=== PATIENT | female | born 1985 | race Caucasian/White ===

== ENCOUNTER 2016-08-13 00:30 | Observation (INO) ==
[2016-08-13] MEDS ORDERED: Ondansetron 4 MG/2 ML VIAL IVP PRN ×2 (01:37→16:21)
[2016-08-13] MEDS ORDERED: Ringers Solution, Lactated 1,000 ML IVC SCH ×3 (01:45→16:21)
--- NOTE | 2016-08-13 01:55 | General Surg History&Physical ---
Date of Encounter: 08/13/16 Time of Encounter: 01:30 History of Present Illness Chief complaint: Acute right lower quadrant abdominal pain, acute appendicitis HPI: Ms. Meléndez is a 30 year old morbidly obese patient transferred from [facility] for further evaluation and treatment of right lower quadrant abdominal pain with radiologic evidence of acute appendicitis. Patient indicates symptoms started approximately 24 hours ago. She describes severe pain with mild nausea but no emesis. White count was 17,000. CT of the abdomen and pelvis showed cholelithiasis without evidence of acute cholecystitis; the appendix is dilated measuring up to 1.1 cm with mild wall thickening and adjacent inflammatory changes consistent with acute appendicitis. No signs or symptoms of perforation were identified. Past medical history: Morbid obesity, depression; vitamin D deficiency Surgical history: None described Allergies: No known drug allergies Medications: Calcium carbonate 500 mg by mouth daily cholecalciferol (vitamin D3) 1000 units by mouth daily Fluoxetine 40 mg by mouth daily Norgestimate ethinyl estradiol (sprintec) 1 tablet daily Sennosides 8.6 mg by mouth daily Social history: Patient is G2, P2; patient has never smoked; she admits to weekend alcohol, she denies any illicit drug use Physical examination: Morbidly obese, age-appropriate woman, resting comfortably in her hospital bed. 1.7 m tall, 130.5 kg, BMI 45.1; afebrile at 99; pulse 101-109, respirations 14-20, blood pressure 123/82. Skin: Warm without obvious jaundice Lungs: Clear to auscultation, no obvious abdominal pain with deep inspiration Cardiac: Rapid rate but no discernible murmurs Abdomen: Morbidly obese, with diffuse tenderness. No obvious rebound no detected intra-abdominal masses but her exam is limited by her body habitus. Hypoactive bowel sounds. The radiologist interpreting the recent CT describes the appendix as arising and extending superiorly in the midline. This is consistent with diffuse tenderness and caliber on my exam. Extremities: No obvious clubbing cyanosis or edema. Laboratories: White count 17.0; hemoglobin 14.7, hematocrit 43.2. Platelet count 301,000. Neutrophils elevated at 13.1% Electrolytes, BUN, creatinine within normal limits. Total bilirubin borderline at 1.3, other LFTs within normal limits. Urinalysis notable for the urine being slightly cloudy with a pH of 6.5, specific gravity 1.010. Trace leukocyte esterase; 0-3 red cells, 0-3 white cells per high-powered field Urine test negative Impression: 30-year-old female transferred to [facility] after presenting to the [facility] with new onset right lower quadrant abdominal pain. Clinical findings are consistent with acute appendicitis for which the patient has been transferred to [facility]. Surgical options include laparoscopic appendectomy each eye have recommended. The patient, asked to be seen by Dr Rhoades. Per the patient's request, [facility]/Dr Rhoades will be notified later this morning with the patient's care transferred to that service. Until that transfer can be arranged; the patient be kept NPO, IV antibiotics will be initiated and pain will be controlled with IV Dilaudid. Any nausea vomiting will be treated symptomatically. Past Med Surg Social Fam HX - Past Medical History Medical history: no medical history Psychiatric history: depression - Social History Smoking Status: Never smoker Smokeless Tobacco Status: No Alcohol use: occasionally Drug use: none - Family History Mother Living Status: Still Living Hx Family Cardiac Disorders: Yes (HLD) Hx Family Respiratory Disorders: No Hx Family Cancer: No Hx Family GI Disorders: Yes (Hernias) Hx Family Genitourinary Disorders: No Hx Family Endocrine Disorder: Yes (DM) Hx Family Musculoskeletal Disorders: No Hx Family Neuromuscular Disorders: No Hx Family Neurologic Disorders: No Hx Family HEENT Disorders: No Hx Family Autoimmune Disorders: No Hx Family Reproductive Disorders: No Hx Family Psychosocial Disorders: Yes Hx Family Medical Disorders: No Father Living Status: Still Living Hx Family Cardiac Disorders: No Hx Family Respiratory Disorders: No Hx Family Cancer: No Hx Family GI Disorders: No Hx Family Genitourinary Disorders: No Hx Family Endocrine Disorder: No Hx Family Musculoskeletal Disorders: No Hx Family Neuromuscular Disorders: No Hx Family Neurologic Disorders: No Hx Family HEENT Disorders: No Hx Family Autoimmune Disorders: No Hx Family Reproductive Disorders: No Hx Family Psychosocial Disorders: No Hx Family Medical Disorders: No Medications and Allergies Calcium Carbonate [Calcium] 500 mg PO DAILY 08/12/16 [History] Cholecalciferol (D-3) [Vitamin D] 1,000 unit PO DAILY 08/12/16 [History] FLUoxetine HCl [Fluoxetine HCl] 40 mg PO DAILY 08/12/16 [History] Norgestimate-Ethinyl Estradiol [Sprintec 28 Day Tablet] 1 each PO DAILY [History] Sennosides [Senokot] 8.6 mg PO DAILY 08/12/16 [History] Allergies No Known Allergies Allergy (Verified 08/12/16 21:11) Review of Systems All systems PM: A 10-system review of systems was performed and is negative for pertinent findings except as documented above in the HPI. General Surgery Exam Initial Vital Signs Temp Pulse Resp BP Pulse Ox 99 F 101 14 123/82 97 08/13/16 01:21 08/13/16 01:21 08/13/16 01:21 08/13/16 01:21 08/13/16 01:21 Results - Labs All other labs normal.
[2016-08-13] MEDS: Piperacillin/Tazobactam 3.375 GM in D5% in Water (Mini-Bag+) 100 ML IVPB SCH ×2 (02:18→10:10)
[2016-08-13] MEDS: *HR* HYDROmorphone (PF) 1 MG/ML SYRINGE IVP PRN ×4 (02:18→15:40)
[2016-08-13] MEDS ORDERED: FLUoxetine 20 MG CAPSULE PO SCH (09:00)
--- NOTE | 2016-08-13 10:06 | Event Note ---
Date of Encounter: 08/13/16 Time of Encounter: 09:30 Patient was a transfer from [facility] with acute appendicitis. The patient has been evaluated by Dr. Hensley and history and physical has been complete. The patient has requested to have her surgery completed by Dr. Rhoades after being seen by Dr. Hensley. Dr. Rhoades was notified of the request this morning. The patient has been seen and evaluated by myself this morning. I am in agreement with the assessment and plan as outlined in the history and physical. The risks, benefits, alternatives and expected outcomes have been reviewed with the patient and she is in agreement to proceed to the operating room for a laparoscopic appendectomy with Dr. Rhoades in the next 24 hours.
[2016-08-13] MEDS ORDERED: Lidocaine -MPF 4% 5 ML AMPUL ONE (13:56)
[2016-08-13] MEDS ORDERED: Dexamethasone 4 MG/ML VIAL ONE (13:57)
[2016-08-13] MEDS ORDERED: *HR* Rocuronium Bromide 50 MG/5 ML VIAL ONE (13:57)
[2016-08-13] MEDS ORDERED: *HR* FentaNYL (PF) 100 MCG/2 ML VIAL ONE ×2 (13:57→14:46)
[2016-08-13] MEDS ORDERED: Ondansetron 4 MG/2 ML VIAL ONE (13:57)
[2016-08-13] MEDS ORDERED: *HR* Midazolam HCl 2 MG/2 ML VIAL ONE (13:57)
[2016-08-13] MEDS ORDERED: Lidocaine -MPF 2% 2 ML VIAL ONE (13:57)
[2016-08-13] MEDS ORDERED: Neostigmine Methylsulfate 3 MG/3 ML SYRINGE ONE (13:57)
--- NOTE | 2016-08-13 13:57 | Anesthesia Evaluation PreOp ---
Date of Encounter: 08/13/16 Time of Encounter: 13:55 - Past History Planned Operation: Lap appy Cardiac History: Denies any Significant Hx Pulmonary History: Denies Any Significant HX PHLEBOTOMIST SUPERVISOR/INSTRUCTOR History: Other (depression) Other Medical History: Other (BMI 45) Anesthesia History: No Prior Anesthetic Complications, Past Anesthesia ( tonsillectomy) Alcohol Use: occasionally Drug use: none Medications and Allergies FLUoxetine HCl [Fluoxetine HCl] 40 mg PO DAILY 08/12/16 [History] Norgestimate-Ethinyl Estradiol [Sprintec 28 Day Tablet] 1 each PO DAILY [History] Sennosides [Senokot] 8.6 mg PO DAILY 08/12/16 [History] Calcium Carbonate/Vitamin D3 [Calcium 500-Vit D3 600 Tablet] 1 each PO DAILY 02/17 [History] Triamcinolone Acet 0.1% OINT [Kenalog] 1 appl TP BID 08/13/16 [History] Allergies No Known Allergies Allergy (Verified 08/13/16 12:03) - Meds/Allergy Pre-op Review Medications Reviewed: Yes Allergies Reviewed: Yes Beta Blockers on Current Med List: No Anesthesia Results - Labs Laboratory Tests 08/12/16 08/12/16 08/12/16 21:10 21:35 21:35 WBC 17.0 H Hgb 14.7 Hct 43.2 Plt Count 301 Sodium 139 Potassium 3.5 Chloride 105 Carbon Dioxide 21 BUN 7 Creatinine 0.66 Est GFR ( Amer) > 60 Est GFR (Non-Af Amer) > 60 BUN/Creatinine Ratio 11 Glucose 91 Calculated Osmolality 286 Calcium 9.3 Urine Test Negative Anesthesia Exam Last Vital Signs Temp 99.5 F 08/13/16 11:06 Pulse 54 08/13/16 11:06 Resp 16 08/13/16 11:06 BP 130/86 08/13/16 11:06 Pulse Ox 97 08/13/16 11:06 Weight: 131 kg NPO (# of Hours): >> 8 hrs - HEENT Pupil (Motor): Pupils equal, EOMI Mallampati: II Teeth: Normal Oral Opening: Greater than 3 - PHLEBOTOMIST SUPERVISOR/INSTRUCTOR LOC: Oriented PHLEBOTOMIST SUPERVISOR/INSTRUCTOR Motor: Normal RUE, Normal LUE, Normal RLE, Normal LLE, Normal Face PHLEBOTOMIST SUPERVISOR/INSTRUCTOR Sensory: Normal: RUE, LUE, RLE, LLE, Face - Cardiac Rhythm: Regular Murmur: None - Pulmonary Breath Sounds: bilateral Clear Respiratory Effort: Symmetrical Anesthesia Assess/Plan ASA Score: 3 Modified Morton Scale for Level of Consciousness: Cooperative, oriented, and tranquil Anesthetic Plan: General Monitoring Plan: Standard Monitors Recovery Plan: PACU
[2016-08-13] MEDS ORDERED: *HR* Propofol 200 MG/20 ML VIAL IVP ONE (13:58)
[2016-08-13] MEDS ORDERED: Ketorolac 30 MG/ML VIAL ONE (14:40)
[2016-08-13] MEDS ORDERED: *HR* Promethazine 25 MG/ML VIAL IVP PRN (14:54)
[2016-08-13] MEDS ORDERED: *HR* Labetalol 20 MG/4 ML SYRINGE IVP PRN (14:54)
[2016-08-13] MEDS ORDERED: Ondansetron 4 MG/2 ML VIAL IVP ONE ×2 (14:54→16:21)
--- NOTE | 2016-08-13 15:14 | Operative Note ---
Date of procedure: 08/13/16 Pre-op diagnosis: apendicitis Post-op diagnosis: same Procedure: laparoscopic appendectomy Anesthesia: FELISA Surgeon: Rafael Rhoades Estimated blood loss (cc): 5 Condition: stable Disposition: same day Procedure in Detail: After informed consent, patient was taken to the operating room placed in supine position. After adequate sedation anesthesia the abdomen was prepped and draped. A 12 mm cannula was placed in the umbilicus. A 5 mm cannulas placed in suprapubic region and the left lower quadrant. Camera was inserted and the abdomen after a pneumoperitoneum. 2 [place] graspers were used to identify the base of the appendix. A appendiceal window was created. A KARAN endoscopic stapler was placed across the base. A vascular load was placed across the mesoappendix. Once the appendix was was placed in an Endobag and removed through the umbilicus. The right lower quadrant was suctioned dry no bleeding was identified. Remainder the pneumoperitoneum was evacuated. The umbilicus was closed with an 0 Vicryl suture in [id number] fashion. Skin was closed with 4-0 Vicryl suture and Dermabond.
[2016-08-13] MEDS ORDERED: *HR* HYDROmorphone (PF) 1 MG/ML SYRINGE ONE (15:33)
--- NOTE | 2016-08-13 16:00 | Anesthesia Evaluation Post Op ---
Date of Encounter: 08/13/16 Time of Encounter: 15:59 - Vital Signs Vital Signs: Vital Signs/O2 Sat, Most Current Temp Pulse Resp BP Pulse Ox 99.3 F 64 16 127/82 95 08/13/16 15:16 08/13/16 15:36 08/13/16 15:36 08/13/16 15:36 08/13/16 15:36 - Lungs Lungs: Clear Ascult./Percussion - Airway Airway: Non-obstructed - Cardiovascular Regular Rate - Mental Status Mental Status: Alert & Oriented, Answers Appropriately - Pain Pain Scale: 4 Pain Scale used: Numeric (1 - 10) - Nausea Vomiting Nausea Vomiting: Not Present - Hydration Hydration: NPO, Has not voided - Discharge PostOp Status: Transfer Patient to floor
--- NOTE | 2016-08-13 16:13 | Discharge Summary ---
Date of Encounter: 08/13/16 Time of Encounter: 16:11 - Discharge Diagnosis (1) Acute appendicitis Priority: Primary Status: Resolved Qualifiers: Acute appendicitis type: with localized peritonitis Qualified Code(s): K35.3 - Acute appendicitis with localized peritonitis - Discharge Medications Prescriptions: OxyCODONE/APAP 5/325 [Percocet 5/325 MG] 1 each PO Q6HR PRN #30 tablet PRN Reason: Pain Docusate [Colace] 100 mg PO BID #30 capsule Ibuprofen 800 mg PO Q8H PRN #50 tablet PRN Reason: Pain Home Medications: FLUoxetine HCl [Fluoxetine HCl] 40 mg PO DAILY 08/12/16 [History] Norgestimate-Ethinyl Estradiol [Sprintec 28 Day Tablet] 1 each PO DAILY [History] Sennosides [Senokot] 8.6 mg PO DAILY 08/12/16 [History] Calcium Carbonate/Vitamin D3 [Calcium 500-Vit D3 600 Tablet] 1 each PO DAILY 02/17 [History] Docusate [Colace] 100 mg PO BID #30 capsule 08/13/16 [Rx] Ibuprofen 800 mg PO Q8H PRN #50 tablet 08/13/16 [Rx] OxyCODONE/APAP 5/325 [Percocet 5/325 MG] 1 each PO Q6HR PRN #30 tablet 08/13/16 [Rx] Triamcinolone Acet 0.1% OINT [Kenalog] 1 appl TP BID 08/13/16 [History] Allergies/Adverse Reactions: Allergies No Known Allergies Allergy (Verified 08/13/16 12:03) General Surgery Exam Initial Vital Signs Temp Pulse Resp BP Pulse Ox 99 F 101 14 123/82 97 08/13/16 01:21 08/13/16 01:21 08/13/16 01:21 08/13/16 01:21 08/13/16 01:21 Date of admission: 08/13/16 00:56 Primary care physician: Mckayla Mclean CNP Discharging clinician: Rafael Rhoades Anticipated date of discharge: 08/13/16 - Patient Status Disposition: Home, Self-Care Condition: Good Functional capacity at discharge: independent ambulation Overall status at discharge: patient is progressing back to baseline - Discharge Instructions Follow Up With: Donini,Mckayla N, COMPUTER INFORMATION SYSTEMS PROFESSOR [Primary Care Provider] - Tess Mccartney CNP [Advanced Practice Nurse] - 08/27/16 8:45 am (Surgery follow-up) Additional Instructions: #1 may shower, no tub bath for 2 weeks #2 wash incisions with soap and water and pat dry daily #3 no lifting, pushing, pulling more than 15 pounds for the next 2 weeks #4 no driving until off narcotics for 24 hours and able to safely react in the car #5 may climb stairs - Diet and Activity Activity: increase activity as tolerated Diet: advance to your usual diet - Hospital Course Hospital course: Ms. Meléndez is a 30 year old female presented to the hospital with acute onset of abdominal discomfort. She was found to have acute appendicitis. She was taken to the operating room for laparoscopic appendectomy with Dr. Rhoades. She was also given IV antibiotic therapy. We will begin discharge planning to home when the patient meets discharge criteria including tolerating liquids without nausea vomiting, pain is well controlled, vital signs are stable and afebrile, voiding and ambulating without difficulty. - Time Spent with Patient Total time spent providing and/or coordinating discharge services: Less than 30 minutes - Attending Attestation I examined this patient and my medical decision-making was reviewed with the PAYROLL AUDITOR/PA/Advanced Practice Nurse/Resident Physician. I agree with the documented findings, disposition and treatment plan as described except to the extent set forth below.
[2016-08-13] MEDS ORDERED: *HR* OxyCODONE/APAP 5/325 TABLET PO PRN (16:21)
[2016-08-13] MEDS ORDERED: Acetaminophen 325 MG TABLET PO PRN (16:21)
[2016-08-13] MEDS ORDERED: *HR* HYDROmorphone (PF) 1 MG/ML SYRINGE IVP PRN (16:21)
[2016-08-13 19:36] VITALS: BP 113/72
[2016-08-14] MEDS ORDERED: FLUoxetine 20 MG CAPSULE PO SCH (09:00)
== END 2016-08-13 23:15 | disposition home or self-care (01) ==
LOC: 3BNU
PROVIDERS: ADMIT Surgery; ATTEND Surgery